=== PATIENT | male | born 1965 | race Caucasian/White ===

== ENCOUNTER 2016-10-07 02:19 | Observation (INO) | payer MEDICAID ==
[~2016-10-07] VITALS: Ht 180.3 cm; Wt 131.4 kg
[2016-10-07 03:06] LABS: APPEARANCE CLEAR (CLEAR); BILIRUBIN NEGATIVE (NEGATIVE); COLOR YELLOW (YELLOW); GLUCOSE 50 mg/dL (NEGATIVE); KETONE NEGATIVE (NEGATIVE); LEUKOCYTE ESTERASE NEGATIVE (NEGATIVE); NITRITE NEGATIVE (NEGATIVE); PROTEIN NEGATIVE (NEGATIVE); SPECIFIC GRAVITY 1.015 (1.005-1.020); UROBILINOGEN NORMAL (NORMAL)
[2016-10-07 03:12] LABS: UDS - AMPHET NEGATIVE QUAL (NEGATIVE); UDS - BARB NEGATIVE QUAL (NEGATIVE); UDS - BENZO NEGATIVE QUAL (NEGATIVE); UDS - COCAINE NEGATIVE QUAL (NEGATIVE); UDS - METH NEGATIVE QUAL (NEGATIVE); UDS - OPIATE NEGATIVE QUAL (NEGATIVE); UDS - PCP NEGATIVE QUAL (NEGATIVE); UDS - THC NEGATIVE QUAL (NEGATIVE)
[2016-10-07 03:30] LABS: BASOPHILS 0.1 % (0-2); EOSINOPHILS 0.7 % (0-7); HEMATOCRIT 43.1 % (42.0-54.0); HEMOGLOBIN 14.7 g/dL (13.5-17.5); IMMATURE GRANULOCYTES 0.4 % (0-5); LYMPHOCYTES 12.2 % (15-50); MCH 29.3 pg (26.0-34.0); MCHC 34.1 g/dL (31.0-37.0); MCV 85.9 fL (80.0-100.0); MEAN PLATELET VOLUME 10.2 fL (7.4-10.4); MONOCYTES 7.2 % (2-11); NEUTROPHILS 79.4 % (40-80); PLATELET COUNT 280 10x3/uL (130-400); RBC 5.02 10x6/uL (4.20-6.10); RDW 12.6 % (11.5-14.5); WBC 13.7 10x3/uL (4.8-10.8)
[2016-10-07 03:49] LABS: ALBUMIN 3.8 g/dL (3.4-5.0); ALKALINE PHOSPHATASE 116 U/L (46-116); ALT (SGPT) 34 U/L (10-68); BILIRUBIN - TOTAL 0.48 mg/dL (0.2-1.3); CALC OSMOLALITY 254 mosm/kg (275-300); CALCIUM 8.6 mg/dL (8.5-10.1); CARBON DIOXIDE 21.8 mmol/L (21.0-32.0); CHLORIDE - SERUM 92 mmol/L (98-107); CREATININE - SERUM 0.9 mg/dL (0.6-1.3); GLUCOSE 92 mg/dL (74-106); MAGNESIUM - SERUM 1.9 mg/dL (1.8-2.4); POTASSIUM - SERUM 4.3 mmol/L (3.5-5.1); PROTEIN - SERUM 7.7 g/dL (6.4-8.2); SODIUM 126 mmol/L (136-145); UREA NITROGEN 17 mg/dL (7-18); eGFR NON AFRICAN AMERICAN > 90 mL/min (90-120)
--- NOTE | 2016-10-07 07:56 | NUR ---
RECEIVED PT VIA WHEELCHAIR ACCOMPANIED BY ER NURSE. PT IS CONFUSED AND STATES WHEN ASKED IF HE KNOWS WHERE HE IS "I'M AT MY MOMS HOUSE IN [facility]". ASSISTED PT TO BED. BED IS IN LOW POSITION, SIDE RAILS ARE UP X2, CALL LIGHT IS IN REACH, AND BED ALARM IS ON. ON ROOM AIR. NO MONITOR. IV SEEN TO RIGHT WRIST WITH NS RUNNING AT 100CC. DR JUAREZ ON UNIT NOW. INFORMED DR. JUAREZ THAT PT IS CONFUSED. DR. JUAREZ IN ROOM NOW. WILL CONTINUE TO MONITOR AND AWAIT NEW ORDERS.
[2016-10-07 09:43] LABS: CREATINE KINASE 392 UL (21-232)
[2016-10-07 09:44] LABS: CKMB 10.8 U/L (0.0-3.6)
[2016-10-07] MEDS ORDERED: METOPROLOL TAR100 M1 PO (09:49)
[2016-10-07] MEDS ORDERED: LITHIUM CARBON300 MG PO (09:49)
[2016-10-07] MEDS ORDERED: KLONOPIN1 MG PO (09:50)
[2016-10-07] MEDS ORDERED: GLUCOPHAGE500 MG PO (09:51)
[2016-10-07 09:52] VITALS: BP 143/76; Ht 180.3 cm; Wt 131.4 kg
--- NOTE | 2016-10-07 10:31 | NUR ---
ATTEMPTED TO DO PTS QUICKSTART, ADMISSION ASSESSMENT, AND ADMISSION HISTORY. I WAS NOT ABLE TO GET EFFICIENT INFORMATION DUE TO PT BEING VERY CONFUSED. DR. JUAREZ IS AWARE OF PTS CONFUSION AND HAS ALREADY MADE ROUNDS. INSTRUCTED PT TO NOT GET OOB UNLESS STAFF IS IN ROOM TO ASSIST PT. BED IS IN LOW POSITION, SIDE RAILS ARE UP X2, CALL LIGHT IS IN REACH, AND NON-SKID SOCKS ARE ON. BED ALARM IS ON. WILL CONTINUE TO MONITOR.
[2016-10-07 12:00] VITALS: BP 135/69
--- NOTE | 2016-10-07 13:50 | NUR ---
ATTEMPTED TO CALL NUMBER GIVEN FOR PTS MOTHERS PHONE NUMBER IN CHART WITH NO ANSWER AND NO VOICEMAIL SET UP. WILL TRY AGAIN AND CONTINUE TO MONITOR.
[2016-10-07 16:00] VITALS: BP 143/56
--- NOTE | 2016-10-07 16:13 | NUR ---
STEVE, FUN HOUSE OPERATOR OBTAINED PT INFORMATION FROM DR. WHITING OFFICE TO SEE ABOUT GETTING IN CONTACT WITH PTS FAMILY (MOTHER) REQUESTED BY PT. CALLED PHONE NUMBER PROVIDED AND IT WENT STRAIGHT TO MESSAGE THAT STATED "PERSON DOES NOT HAVE VOICEMAIL SET UP, TRY AGAIN LATER".
--- NOTE | 2016-10-07 17:21 | NUR ---
PTS FAMILY FRIEND CALLED TO SEE ABOUT PT. FAMILY FRIEND STATES SHE WILL LET PTS MOM (PT HAS BEEN REQUESTING TO SPEAK WITH HIS MOTHER BUT WE HAVE NOT BEEN ABLE TO GET AHOLD OF PTS MOM WITH RIGHT PHONE NUMBER) KNOW PT IS IN HOSPITAL REQUESTED BY PT. PTS FRIEND STATES SHE WILL BE UP HERE SOON.
--- NOTE | 2016-10-07 17:22 | NUR ---
PT IS CURRENTLY SITTING ON SIDE OF BED, JUST FINISHED EATING DINNER TRAY. PT APPEARS TO BE CONFUSED. BED IS IN LOW POSITION, SIDE RAILS ARE UP X2, CALL LIGHT IS IN REACH, AND NON-SKID SOCKS ARE ON. BED ALARM IS ON. WILL CONTINUE TO MONITOR.
[2016-10-07 19:00] VITALS: BP 138/70
--- NOTE | 2016-10-07 19:50 | NUR ---
PT UP IN ROOM. RIGHT WRIST NS RUNNING AT 100ML/HR. PT IS BIPOLAR AND HAS A HX OF DRUG USE AND DIABETES.
--- NOTE | 2016-10-07 23:40 | NUR ---
PT IN HALLWAY SHOUTING AND BEING LOUD. SECURITY CALLED BY ABILIO MOTLEY. SECURITY WENT INTO PT'S ROOM AND TALKED WITH HIM. PT IS NOW MORE CALM. WILL CONTNINUE TO MONITOR.
--- NOTE | 2016-10-08 02:00 | NUR ---
PT IN BED WITH HOB UP FOR COMOFT. EYES CLSOED. CHEST RISING AND FALLING. BED IN LOWEST POSITION AND CALL LIGHT WITHIN REACH.
--- NOTE | 2016-10-08 03:15 | NUR ---
PT SITTING UP ON SIDE OF BED EATING A SNACK.
[2016-10-08 04:00] VITALS: BP 103/79
--- NOTE | 2016-10-08 04:00 | NUR ---
PT'S Q4H NEURO CHECKS FOR 0000. CONFUSED/DISORIENTED TO PLACE, TIME, AND SITUATION. GLASCOW COMA SCALE. EYE OPENIN SPONTANEOUSLY. BEST MOTOR RESPONSE: 6 OBEYS COMMANDS. BEST VERBAL RESPONSE: 4 CONFUSED. PT'S Q4H NEURO CHECKS FOR 0400. CONFUSED/DISORIENTED TO PLACE, TIME, AND SITUATION. GLASCOW COMA SCALE. EYE OPENIN SPONTANEOUSLY. BEST MOTOR RESPONSE: 6 OBEYS COMMANDS. BEST VERBAL RESPONSE: 4 CONFUSED.
--- NOTE | 2016-10-08 05:00 | NUR ---
PT HAS BEEN UP AND DOWN ALL NIGHT WITH INAPPRORIATE BEHAVIOR. MEDICATIONS GIVEN PER MD ORDERS AND PT WILL THEN SLEEP FOR A SHORT WHILE BEFORE REAWAKENING TO START HIS BEHAVIORS AGAIN. MONITOR, MAINTAIN IN SAFE ENVIRONMENT. CPOC.
[2016-10-08 05:38] LABS: BASOPHILS 0.7 % (0-2); HEMATOCRIT 39.3 % (42.0-54.0); HEMOGLOBIN 13.3 g/dL (13.5-17.5); IMMATURE GRANULOCYTES 0.2 % (0-5); LYMPHOCYTES 25.9 % (15-50); MCH 30.1 pg (26.0-34.0); MCHC 33.8 g/dL (31.0-37.0); MEAN PLATELET VOLUME 10.8 fL (7.4-10.4); MONOCYTES 14.8 % (2-11); NEUTROPHILS 56.4 % (40-80); PLATELET COUNT 254 10x3/uL (130-400); RBC 4.42 10x6/uL (4.20-6.10)
[2016-10-08 05:44] LABS: MCV 88.9 fL (80.0-100.0); WBC 4.5 10x3/uL (4.8-10.8)
[2016-10-08 06:14] LABS: CALC OSMOLALITY 277 mosm/kg (275-300); CALCIUM 8.6 mg/dL (8.5-10.1); CARBON DIOXIDE 24.3 mmol/L (21.0-32.0); CHLORIDE - SERUM 104 mmol/L (98-107); CKMB 2.9 U/L (0.0-3.6); CREATINE KINASE 139 UL (21-232); CREATININE - SERUM 0.7 mg/dL (0.6-1.3); GLUCOSE 212 mg/dL (74-106); POTASSIUM - SERUM 4.3 mmol/L (3.5-5.1); SODIUM 137 mmol/L (136-145); TROPONIN-I < 0.017 ng/mL (0.000-0.060); UREA NITROGEN 7 mg/dL (7-18); eGFR NON AFRICAN AMERICAN > 90 mL/min (90-120)
--- NOTE | 2016-10-08 08:15 | NUR ---
AM ROUNDING- RECEIVED REPORT FROM REGULATOR PIN INSERTER NURSE DAYLIN. PT IS CURRENTLY LAYING IN BED ON RIGHT SIDE WITH EYES CLOSED RESTING. ON ROOM AIR. NO MONITOR. IV SEEN TO RIGHT WRIST WITH NS RUNNING AT 100CC. NO NEED AT CURRENT TIME. BED IS IN LOW POSITION, SIDE RAILS ARE UP X2, CALL LIGHT IS IN REACH, AND NON-SKID SOCKS ARE ON. WILL CONTINUE TO MONITOR AND CONTINUE WITH PLAN OF CARE.
[2016-10-08 08:24] VITALS: BP 121/55
--- NOTE | 2016-10-08 11:35 | NUR ---
PTS MOTHER CALLED NURSES STATION. PTS MOTHER STATES HE HAS BEEN CONFUSED FOR SEVERAL WEEKS NOW WITH CONFUSION AND SLURRED SPEECH. PTS MOTHER STATES HE LIVES BY HIMSELF IN PUBLIC HOUSING [place]OWN BY [facility]. PTS MOTHER STATES SHE THINKS HE MAY BE TAKING TOO MUCH OF HIS MEDICATION OR NOT ENOUGH. PTS MOTHER STATES HE WAS IN THE HOSPITAL APR[facility] THREE WEEKS AGO AND NOT SURE EXACTLY WHICH HOSPITAL BUT [facility]. TRANSFERRED PTS MOTHER TO PTS ROOM PHONE. WILL CONTINUE TO MONITOR.
--- NOTE | 2016-10-08 12:03 | NUR ---
RECEIVED CALL FROM PTS MOTHER AFTER PTS MOTHER HAD SPOKEN TO PT. MOTHER STATES THAT SHE BELIEVES PT IS BACK AT HIS BASELINE. MOTHER IS CONCERNED BECAUSE PT IS STATING TO HER THAT THE HOMELESS PEOPLE THAT LIVE AROUND WHERE PT LIVES IS STEALING HIS HOME MEDICATIONS AND POSSIBLY HIS TRUCK. PTS MOTHER IS WONDERING WHEN PT MIGHT BE D/C TO SEE ABOUT THIS SITUATION. I INFORMED PTS MOTHER THAT PER DR. HAYES WRITTEN NOTES, PT MAY POSSIBLY BE D/C HOME TODAY.
[2016-10-08 12:12] VITALS: BP 150/80
--- NOTE | 2016-10-08 13:02 | NUR ---
PT REFUSES SCDS. PT IS UP WALKING IN ROOM OFTEN.
--- NOTE | 2016-10-08 15:22 | NUR ---
1430- PT IS CURRENTLY SITTING IN ROOM WITH EYES OPEN RESTING. PT HAS BEEN COMING OUT OF ROOM FREQUENTLY. CALL LIGHT IS IN REACH AND NON-SKID SOCKS ARE ON. WILL CONTINUE TO MONITOR.
[2016-10-08 16:27] VITALS: BP 145/83
--- NOTE | 2016-10-08 17:37 | NUR ---
PAGED DR. HAYES OFFICE REGARDING NURSING MESSAGE ABOUT D/C PT TODAY POSSIBLY. SPOKE WITH LEIA. WILL AWAIT CALLBACK.
--- NOTE | 2016-10-08 17:46 | NUR ---
RECEIVED CALLBACK FROM DR. EDEN. INFORMED DR. EDEN THAT I HAVE TALKED TO PTS MOTHER AND THAT PTS MOTHER STATED THAT PT SEEMED LIKE HIS NORMAL SELF WHEN SPEAKING ON THE PHONE TO HIM. DR. EDEN STATES THAT HE WILL GO AHEAD AND SEE PT IN THE MORNING. WILL PASS THIS ALONG IN REPORT. PT IS CURRENTLY SITTING UP IN CHAIR WITH EYES OPEN RESTING. CALL LIGHT IS IN REACH AND NON-SKID SOCKS ARE ON. WILL CONTINUE TO MONITOR.
--- NOTE | 2016-10-08 18:35 | NUR ---
PT IS CURRENTLY SITTING UP IN CHAIR WITH EYES OPEN RESTING. NO NEED AT CURRENT TIME. CALL LIGHT IS IN REACH. WILL CONTINUE TO MONITOR.
[2016-10-08 19:00] VITALS: BP 122/96
--- NOTE | 2016-10-08 19:56 | NUR ---
PT WALK OUT OF ROOM, COME TO NURSE STATION, SHOUTING, HE WANT TO CALL HIS MOTHER, FRIENDS, TRY TO CALL HIS MOTHER, AND FRIENDS, NO ANSWER. PT HAS A LOT OF ANXIETY AND IS RESTLESS, ATIVAN GIVEN.
--- NOTE | 2016-10-08 22:30 | NUR ---
SIT UP IN BED EAT SNACK.
--- NOTE | 2016-10-09 01:30 | NUR ---
REST IN BED, EYE CLOSE, BED LOW, CALL LIGHT WITHIN REACH.
--- NOTE | 2016-10-09 04:05 | NUR ---
SIT UP IN BED, SCATCH BACK, STATE UNABLE GO BACK TO SLEEP, AND NEED TWO MORE PILLOWS FOR SUPPORT HEAD, BRINGS PT PILLOWS.
--- NOTE | 2016-10-09 04:05 | NUR ---
PT SIT UP IN BED, SCRATCH BACK, STATE UNABLE GO BACK TO SLEEP, NEED TWO MORE PILLOWS TO SUPPORT NECK, AND BRING PILLOWS FOR PT.
--- NOTE | 2016-10-09 08:38 | NUR ---
PT OUT AMBULATING HALLWAYS. ASSISTED PT BACK TO HIS ROOM. OUTSIDE AND STATES FLUIDS CAN BE DISCONNECTED AND HE IS SENDING PT HOME. SHIFT ASSESSMENT COMPLETED AND PT READY TO GO HOME AND STATES "IM EXCITED"
[2016-10-09 09:18] VITALS: BP 164/102
--- NOTE | 2016-10-09 11:23 | NUR ---
Patient Name: PATRICK LESTER Admission Status: ER Accout number: [id number] Admission Date: 10-07-2016 : 1965 Admission Diagnosis: Attending: KENNY Current LOS: 2 Anticipated DC Date: 10-09-2016 Planned Disposition: Home Primary Insurance: MEDICAID [place] Discharge Planning Comments: * Is the patient Alert and Oriented? Yes 0 * How many steps to enter\exit or inside your home? 5 0 * PCP DR. DUNCAN 0 * Pharmacy ON [facility] - CAN'T REMEMBER THE NAME 0 * Preadmission Environment Home Alone 0 * ADLs Independent 0 * Equipment None 0 * Other Equipment NO MEDICAL EQUIPMENT PROVIDER PREFERENCE 0 * List name and contact numbers for known caregivers / representatives who currently or will assist patient after discharge: JOSE A DAVIS, MOTHER, JEROME DAVIS, BROTHER, [place] [phone] AZALIA DAVIS, MOTHER'S SPOUSE, DO NOT GIVE THIS NUMBER TO PATIENT * Community resources currently utilized None 0 * Please name any agencies selected above. NONE 0 * Additional services required to return to the preadmission environment? No 0 * Can the patient safely return to the preadmission environment? Yes 0 * Has this patient been hospitalized within the prior 30 days at any hospital? No 0 CM RECEIVED ORDER FOR DRUG OR ALCOHOL SCREENING. CM MET WITH PT IN ROOM TO DISCUSS DISCHARGE PLANNING AND NEEDS. PT REPORTS LIVING AT HOME INDEPENDENTLY IN A GOVERNMENT HOUSING APARTMENT ON [facility]. PT HAS NO MEDICAL EQUIPMENT AND NO OUTSIDE SERVICES ASSISTING IN THE HOME. CM DISCUSSED AVAILABILITY OF HOME HEALTH, REHAB SERVICES AND MEDICAL EQUIPMENT. PT DENIES DISCHARGE NEEDS, REPORTS HIS MOTHER WILL PICK HIM UP FOR DISCHARGE HOME. PT CANNOT REMEMBER HIS ADDRESS, BUT REPORTS HE KNOWS HOW TO GET THERE; PT DOES NOT REMEMBER HIS MOTHER'S PHONE NUMBER TO CALL FOR TRANSPORTATION. CM DISCUSSED SUBSTANCE ABUSE, PT DENIES CURRENT DRUG OR ALCOHOL ABUSE, REPORTS HE IS A DRUG ADDICT BUT IS NOT USING DRUGS NOW. PT DENIES NEED OF TREATMENT OR COMMUNITY SUPPORT GROUP INFORMATION. CM CALLED PT'S LISTED EMERGENCY NUMBER FOR HIS MOTHER, JOSE A, , THERE WAS NO ANSWER AND NO VOICE MAIL SET UP. CM CALLED NUMBER OBTAINED FROM BEDSIDE NURSE, , MESSAGE REPORTS TO BE JEROME LESTER OF [employer] HOME REPAIR, CM LEFT MESSAGE ASKING FOR RETURN CALL. CM CALLED ANOTHER NUMBER FOR JEROME AT [phone], THERE WAS NO ANSWER AND NO MESSAGE MACHINE. CM SPOKE TO BEDSIDE NURSE WHO REPORTED A GIRL NAMED MARTHA CALLED AND SAID SHE WAS ON THE WAY TO SHEET METAL INSTALLER PT SHE HAS PT'S CELL PHONE AND TRUCK. CM RECEIVED CALL BACK FROM JOSE A DAVIS WHO REPORTS THAT HER SPOUSE'S NUMBER, AZALIA DAVIS, , IS A GOOD EMERGENCY NUMBER FOR FAMILY BUT FOR STAFF TO NOT GIVE IT TO PT HE CALLS CONSTANTLY. PT HAS A TRUCK TO DRIVE AND TAKES CARE OF HIMSELF. PT LIVES INDEPENDENTLY AT UNKNOWN ADDRESS ON [facility] IN AN APARTMENT. JOSE A REPORTS PT HAS TOLD HER THAT HE HAS DOES A LOT WITH HOMELESS PEOPLE, SHE IS UNAWARE OF WHO MARTHA WOULD BE. PT NOTIFIED OF MARTHA HAVING HIS TRUCK AND PHONE WHO WILL PICK HIM UP TODAY. PT REPORTS NOT KNOWING WHO MARTHA IS BUT WILL WAIT FOR HIS RIDE TO GET HERE. Policy Director: Emmanuel Almendarez
--- NOTE | 2016-10-09 12:20 | NUR ---
DISCHARGED TEACHING PROVIDED AND PAPERS SIGNED. D/C PTS L.FA PIV WITH CATHETER TIP FULLY INTACT. NO FURTHER NEEDS. PTS RIDE IS HERE, WILL DISCHARGE NOW.
== END 2016-10-09 12:26 | disposition home or self-care (01) ==
LOC: D.ER 02:19 → D.M2 07:00 → OBSVTIME 07:00 → D.M2 07:00
PROVIDERS: Emergency Medicine; ADMIT Family Medicine
DX: G93.41 Metabolic encephalopathy (principal); T43.595A Adverse effect of other antipsychotics and neuroleptics, initial encounter; E87.1 Hypo-osmolality and hyponatremia; F31.9 Bipolar disorder, unspecified; I10 Essential (primary) hypertension; Z91.81 History of falling

== ENCOUNTER 2016-10-11 03:15 | Emergency (ER) | payer MEDICAID ==
[2016-10-07 09:52] VITALS: BMI 39.2
[~2016-10-11 03:15] MED LIST: GLUCOPHAGE500 MG PO; KLONOPIN1 MG PO; LITHIUM CARBON300 MG PO; METOPROLOL TAR100 M1 PO
[2016-10-11 03:44] LABS: BASOPHILS 0.4 % (0-2); EOSINOPHILS 1.3 % (0-7); HEMATOCRIT 42.6 % (42.0-54.0); HEMOGLOBIN 14.2 g/dL (13.5-17.5); IMMATURE GRANULOCYTES 0.3 % (0-5); LYMPHOCYTES 31.3 % (15-50); MCH 29.5 pg (26.0-34.0); MCHC 33.3 g/dL (31.0-37.0); MCV 88.4 fL (80.0-100.0); MEAN PLATELET VOLUME 10.1 fL (7.4-10.4); MONOCYTES 8.5 % (2-11); NEUTROPHILS 58.2 % (40-80); RBC 4.82 10x6/uL (4.20-6.10); WBC 8.9 10x3/uL (4.8-10.8)
[2016-10-11 03:58] LABS: PLATELET COUNT 329 10x3/uL (130-400)
[2016-10-11 04:04] LABS: LITHIUM 1.57 mmol/L (0.60-1.20); SALICYLATES 2.1 mg/dL (2.8-20.0)
[2016-10-11 04:10] LABS: ALBUMIN 4.1 g/dL (3.4-5.0); ALKALINE PHOSPHATASE 123 U/L (46-116); ALT (SGPT) 38 U/L (10-68); BILIRUBIN - TOTAL 0.36 mg/dL (0.2-1.3); CALC OSMOLALITY 277 mosm/kg (275-300); CALCIUM 9.2 mg/dL (8.5-10.1); CARBON DIOXIDE 24.5 mmol/L (21.0-32.0); CHLORIDE - SERUM 101 mmol/L (98-107); CREATININE - SERUM 0.9 mg/dL (0.6-1.3); POTASSIUM - SERUM 4.2 mmol/L (3.5-5.1); PROTEIN - SERUM 7.6 g/dL (6.4-8.2); SODIUM 132 mmol/L (136-145); UREA NITROGEN 18 mg/dL (7-18); eGFR NON AFRICAN AMERICAN > 90 mL/min (90-120)
[2016-10-11 04:11] LABS: GLUCOSE 296 mg/dL (74-106)
== END 2016-10-11 09:39 | disposition home or self-care (01) ==
LOC: D.ER 03:15
PROVIDERS: Emergency Medicine
DX: F15.10 Other stimulant abuse, uncomplicated (principal); E11.9 Type 2 diabetes mellitus without complications; I10 Essential (primary) hypertension; F31.89 Other bipolar disorder

== ENCOUNTER 2016-10-12 08:46 | Emergency (ER) | payer MEDICAID ==
[2016-10-07 09:52] VITALS: BMI 39.2
[2016-10-12 09:23] LABS: APPEARANCE CLEAR (CLEAR); BILIRUBIN NEGATIVE (NEGATIVE); COLOR YELLOW (YELLOW); GLUCOSE 1000 mg/dL (NEGATIVE); KETONE MODERATE mg/dL (NEGATIVE); LEUKOCYTE ESTERASE NEGATIVE (NEGATIVE); NITRITE NEGATIVE (NEGATIVE); PROTEIN NEGATIVE (NEGATIVE); SPECIFIC GRAVITY 1.015 (1.005-1.020); UDS - AMPHET NEGATIVE QUAL (NEGATIVE); UDS - BARB NEGATIVE QUAL (NEGATIVE); UDS - BENZO POSITIVE QUAL (NEGATIVE); UDS - COCAINE NEGATIVE QUAL (NEGATIVE); UDS - METH NEGATIVE QUAL (NEGATIVE); UDS - OPIATE NEGATIVE QUAL (NEGATIVE); UDS - PCP NEGATIVE QUAL (NEGATIVE); UDS - THC NEGATIVE QUAL (NEGATIVE); UROBILINOGEN NORMAL (NORMAL)
[2016-10-12 09:24] LABS: BACTERIA NONE SEEN /hpf (NONE SEEN); EPITHELIAL CELLS NSEEN /hpf (0-5); RED CELLS - URINE 0-5 /hpf (0-5); WHITE CELLS - URINE NSEEN /hpf (0-5)
[2016-10-12 09:49] LABS: ALBUMIN 3.8 g/dL (3.4-5.0); ALKALINE PHOSPHATASE 115 U/L (46-116); ALT (SGPT) 36 U/L (10-68); BILIRUBIN - TOTAL 0.48 mg/dL (0.2-1.3); CALC OSMOLALITY 282 mosm/kg (275-300); CALCIUM 8.9 mg/dL (8.5-10.1); CARBON DIOXIDE 25.9 mmol/L (21.0-32.0); CHLORIDE - SERUM 102 mmol/L (98-107); CREATININE - SERUM 0.7 mg/dL (0.6-1.3); GLUCOSE 241 mg/dL (74-106); POTASSIUM - SERUM 4.6 mmol/L (3.5-5.1); PROTEIN - SERUM 7.2 g/dL (6.4-8.2); SODIUM 137 mmol/L (136-145); UREA NITROGEN 14 mg/dL (7-18); eGFR NON AFRICAN AMERICAN > 90 mL/min (90-120)
[2016-10-12 10:19] LABS: BASOPHILS 0.3 % (0-2); EOSINOPHILS 2.7 % (0-7); HEMATOCRIT 42.6 % (42.0-54.0); HEMOGLOBIN 14.1 g/dL (13.5-17.5); IMMATURE GRANULOCYTES 0.3 % (0-5); LYMPHOCYTES 28.9 % (15-50); MCH 29.9 pg (26.0-34.0); MCHC 33.1 g/dL (31.0-37.0); MCV 90.3 fL (80.0-100.0); MEAN PLATELET VOLUME 10.1 fL (7.4-10.4); MONOCYTES 8.5 % (2-11); NEUTROPHILS 59.3 % (40-80); PLATELET COUNT 309 10x3/uL (130-400); RBC 4.72 10x6/uL (4.20-6.10)
== END 2016-10-13 15:18 | disposition short-term general hospital (02) ==
LOC: D.ER 08:46
PROVIDERS: Family Medicine
DX: F23 Brief psychotic disorder (principal); F31.89 Other bipolar disorder; E11.9 Type 2 diabetes mellitus without complications; I10 Essential (primary) hypertension; R41.0 Disorientation, unspecified

== ENCOUNTER 2016-10-26 23:14 | Emergency (ER) | payer MEDICAID ==
[2016-10-07 09:52] VITALS: BMI 39.2
== END 2016-10-27 | disposition home or self-care (01) ==
LOC: D.ER 23:14
DX: B35.3 Tinea pedis (principal); K08.89 Other specified disorders of teeth and supporting structures; F31.89 Other bipolar disorder; E11.9 Type 2 diabetes mellitus without complications; I10 Essential (primary) hypertension

== ENCOUNTER 2016-10-27 06:45 | Emergency (ER) | payer MEDICAID ==
[2016-10-07 09:52] VITALS: BMI 39.2
== END 2016-10-27 07:52 | disposition home or self-care (01) ==
LOC: D.ER 06:45
DX: H60.502 Unspecified acute noninfective otitis externa, left ear (principal); E11.9 Type 2 diabetes mellitus without complications; I10 Essential (primary) hypertension; F31.89 Other bipolar disorder; F17.200 Nicotine dependence, unspecified, uncomplicated

== ENCOUNTER 2016-10-29 19:53 | Emergency (ER) | payer MEDICAID ==
[2016-10-07 09:52] VITALS: BMI 39.2
[2016-10-29 21:12] LABS: BASOPHILS 0.6 % (0-2); EOSINOPHILS 2.1 % (0-7); HEMATOCRIT 39.2 % (42.0-54.0); IMMATURE GRANULOCYTES 0.1 % (0-5); LYMPHOCYTES 41.2 % (15-50); MCH 29.3 pg (26.0-34.0); MCHC 33.2 g/dL (31.0-37.0); MCV 88.5 fL (80.0-100.0); MEAN PLATELET VOLUME 10.2 fL (7.4-10.4); MONOCYTES 8.8 % (2-11); NEUTROPHILS 47.2 % (40-80); PLATELET COUNT 281 10x3/uL (130-400); RBC 4.43 10x6/uL (4.20-6.10); RDW 12.8 % (11.5-14.5); WBC 7.1 10x3/uL (4.8-10.8)
== END 2016-10-29 21:45 | disposition home or self-care (01) ==
LOC: D.ER 19:53
PROVIDERS: Emergency Medicine
DX: B35.3 Tinea pedis (principal); F17.200 Nicotine dependence, unspecified, uncomplicated; E11.9 Type 2 diabetes mellitus without complications; I10 Essential (primary) hypertension

== ENCOUNTER 2017-04-11 17:50 | Emergency (ER) | payer MEDICAID ==
[2016-10-07 09:52] VITALS: BMI 39.2
[2017-04-11 19:08] LABS: BASOPHILS 0.4 % (0-2); EOSINOPHILS 2.1 % (0-7); HEMATOCRIT 39.2 % (42.0-54.0); IMMATURE GRANULOCYTES 0.4 % (0-5); LYMPHOCYTES 35.3 % (15-50); MCH 30.7 pg (26.0-34.0); MCHC 33.2 g/dL (31.0-37.0); MCV 92.5 fL (80.0-100.0); MONOCYTES 8.2 % (2-11); NEUTROPHILS 53.6 % (40-80); RBC 4.24 10x6/uL (4.20-6.10); RDW 12.9 % (11.5-14.5); WBC 7.8 10x3/uL (4.8-10.8)
[2017-04-11 19:24] LABS: APPEARANCE CLEAR (CLEAR); BILIRUBIN NEGATIVE (NEGATIVE); COLOR STRAW (YELLOW); GLUCOSE 1000 mg/dL (NEGATIVE); KETONE NEGATIVE (NEGATIVE); NITRITE NEGATIVE (NEGATIVE); PROTEIN NEGATIVE (NEGATIVE); SPECIFIC GRAVITY 1.005 (1.005-1.020); UROBILINOGEN NORMAL (NORMAL)
[2017-04-11 19:26] LABS: BACTERIA FEW /hpf (NONE SEEN); RED CELLS - URINE RARE /hpf (0-5)
[2017-04-11 19:26] LABS: ALKALINE PHOSPHATASE 124 U/L (46-116); ALT (SGPT) 111 U/L (10-68); CHLORIDE - SERUM 96 mmol/L (98-107); CREATININE - SERUM 0.9 mg/dL (0.6-1.3); POTASSIUM - SERUM 4.9 mmol/L (3.5-5.1); PROTEIN - SERUM 6.6 g/dL (6.4-8.2); SODIUM 129 mmol/L (136-145); UREA NITROGEN 14 mg/dL (7-18); eGFR NON AFRICAN AMERICAN > 90 mL/min (90-120)
[2017-04-11 19:27] LABS: PLATELET COUNT 212 10x3/uL (130-400)
[2017-04-11 19:30] LABS: CALC OSMOLALITY 284 mosm/kg (275-300); GLUCOSE 550 mg/dL (74-106)
[2017-04-11 19:46] LABS: UDS - AMPHET NEGATIVE QUAL (NEGATIVE); UDS - BARB NEGATIVE QUAL (NEGATIVE); UDS - BENZO NEGATIVE QUAL (NEGATIVE); UDS - COCAINE NEGATIVE QUAL (NEGATIVE); UDS - OPIATE NEGATIVE QUAL (NEGATIVE); UDS - PCP NEGATIVE QUAL (NEGATIVE); UDS - THC NEGATIVE QUAL (NEGATIVE)
[2017-04-11 20:02] LABS: KETONE - SERUM NEGATIVE (NEGATIVE)
[2017-04-11 20:18] LABS: THYROID STIMULATING HORMONE 1.41 uIU/mL (0.36-3.74)
== END 2017-04-12 05:38 | disposition short-term general hospital (02) ==
LOC: D.ER 17:50
PROVIDERS: Family Medicine
DX: F22 Delusional disorders (principal); F23 Brief psychotic disorder; E11.9 Type 2 diabetes mellitus without complications; I10 Essential (primary) hypertension

== ENCOUNTER 2017-04-28 17:11 | Emergency (ER) | payer MEDICAID ==
[2016-10-07 09:52] VITALS: BMI 39.2
[2017-04-28 17:34] LABS: BASOPHILS 0.5 % (0-2); EOSINOPHILS 4.1 % (0-7); HEMATOCRIT 40.9 % (42.0-54.0); HEMOGLOBIN 13.5 g/dL (13.5-17.5); IMMATURE GRANULOCYTES 0.2 % (0-5); LYMPHOCYTES 31.8 % (15-50); MCV 90.9 fL (80.0-100.0); MEAN PLATELET VOLUME 10.4 fL (7.4-10.4); MONOCYTES 7.6 % (2-11); NEUTROPHILS 55.8 % (40-80); PLATELET COUNT 247 10x3/uL (130-400); RDW 12.5 % (11.5-14.5); WBC 6.2 10x3/uL (4.8-10.8)
[2017-04-28 17:58] LABS: ALBUMIN 2.9 g/dL (3.4-5.0); ALKALINE PHOSPHATASE 119 U/L (46-116); ALT (SGPT) 276 U/L (10-68); BILIRUBIN - TOTAL 0.22 mg/dL (0.2-1.3); CALC OSMOLALITY 274 mosm/kg (275-300); CALCIUM 8.9 mg/dL (8.5-10.1); CARBON DIOXIDE 25.1 mmol/L (21.0-32.0); CHLORIDE - SERUM 102 mmol/L (98-107); CREATININE - SERUM 0.9 mg/dL (0.6-1.3); POTASSIUM - SERUM 4.2 mmol/L (3.5-5.1); PROTEIN - SERUM 6.7 g/dL (6.4-8.2); SODIUM 134 mmol/L (136-145); UREA NITROGEN 8 mg/dL (7-18); eGFR NON AFRICAN AMERICAN > 90 mL/min (90-120)
[2017-04-28 17:59] LABS: GLUCOSE 253 mg/dL (74-106)
[2017-04-28 19:38] LABS: APPEARANCE CLEAR (CLEAR); BILIRUBIN NEGATIVE (NEGATIVE); COLOR YELLOW (YELLOW); GLUCOSE 1000 mg/dL (NEGATIVE); KETONE NEGATIVE (NEGATIVE); NITRITE NEGATIVE (NEGATIVE); PROTEIN NEGATIVE (NEGATIVE); SPECIFIC GRAVITY 1.015 (1.005-1.020); UROBILINOGEN NORMAL (NORMAL)
[2017-04-28 19:47] LABS: UDS - AMPHET NEGATIVE QUAL (NEGATIVE); UDS - BARB NEGATIVE QUAL (NEGATIVE); UDS - BENZO NEGATIVE QUAL (NEGATIVE); UDS - COCAINE NEGATIVE QUAL (NEGATIVE); UDS - OPIATE NEGATIVE QUAL (NEGATIVE); UDS - PCP NEGATIVE QUAL (NEGATIVE); UDS - THC NEGATIVE QUAL (NEGATIVE)
== END 2017-04-29 02:00 | disposition short-term general hospital (02) ==
LOC: D.ER 17:11
PROVIDERS: Emergency Medicine
DX: R45.851 Suicidal ideations (principal); F31.9 Bipolar disorder, unspecified; E11.9 Type 2 diabetes mellitus without complications; I10 Essential (primary) hypertension

== ENCOUNTER 2017-08-20 17:28 | Emergency (ER) | payer MEDICAID ==
[~2017-08-20] VITALS: Ht 180.3 cm; Wt 104.5 kg
[2017-08-20 17:40] VITALS: Ht 180.3 cm; Wt 104.5 kg
[2017-08-20 17:58] LABS: APPEARANCE CLEAR (CLEAR); BILIRUBIN NEGATIVE (NEGATIVE); COLOR YELLOW (YELLOW); GLUCOSE 1000 mg/dL (NEGATIVE); KETONE NEGATIVE (NEGATIVE); NITRITE NEGATIVE (NEGATIVE); PROTEIN NEGATIVE (NEGATIVE); SPECIFIC GRAVITY 1.015 (1.005-1.020); UROBILINOGEN NORMAL (NORMAL)
[2017-08-20 18:18] LABS: BASOPHILS 0 % (0-2); EOSINOPHILS 0.9 % (0-7); HEMATOCRIT 43.9 % (42.0-54.0); IMMATURE GRANULOCYTES 0.2 % (0-5); LYMPHOCYTES 16.3 % (15-50); MCH 30.2 pg (26.0-34.0); MCHC 34.2 g/dL (31.0-37.0); MCV 88.3 fL (80.0-100.0); MEAN PLATELET VOLUME 10.8 fL (7.4-10.4); NEUTROPHILS 78.6 % (40-80); PLATELET COUNT 218 10x3/uL (130-400); RBC 4.97 10x6/uL (4.20-6.10); WBC 8.2 10x3/uL (4.8-10.8)
[2017-08-20 19:06] LABS: UDS - AMPHET NEGATIVE QUAL (NEGATIVE); UDS - BARB NEGATIVE QUAL (NEGATIVE); UDS - BENZO NEGATIVE QUAL (NEGATIVE); UDS - COCAINE NEGATIVE QUAL (NEGATIVE); UDS - OPIATE NEGATIVE QUAL (NEGATIVE); UDS - PCP NEGATIVE QUAL (NEGATIVE); UDS - THC NEGATIVE QUAL (NEGATIVE)
[2017-08-20 19:19] LABS: C-REACTIVE PROTEIN 3.9 mg/dL (0.0-0.9)
[2017-08-20 19:23] LABS: TROPONIN-I < 0.017 ng/mL (0.000-0.060)
[2017-08-20 19:52] LABS: ALBUMIN 3.5 g/dL (3.4-5.0); ALKALINE PHOSPHATASE 128 U/L (46-116); ALT (SGPT) 155 U/L (10-68); BILIRUBIN - TOTAL 0.64 mg/dL (0.2-1.3); CALC OSMOLALITY 279 mosm/kg (275-300); CALCIUM 9.1 mg/dL (8.5-10.1); CARBON DIOXIDE 21.5 mmol/L (21.0-32.0); CHLORIDE - SERUM 95 mmol/L (98-107); POTASSIUM - SERUM 4.4 mmol/L (3.5-5.1); PROTEIN - SERUM 8.1 g/dL (6.4-8.2); SODIUM 130 mmol/L (136-145); UREA NITROGEN 17 mg/dL (7-18); eGFR NON AFRICAN AMERICAN 83 mL/min (90-120)
[2017-08-20 19:54] LABS: GLUCOSE 404 mg/dL (74-106)
[2017-08-20 20:03] LABS: CKMB 0.5 U/L (0.0-3.6); CREATINE KINASE 46 UL (21-232)
[2017-08-20 23:24] VITALS: BP 135/79
== END 2017-08-20 23:26 | disposition home or self-care (01) ==
LOC: D.ER 17:28
PROVIDERS: Emergency Medicine; Family Medicine
DX: E11.65 Type 2 diabetes mellitus with hyperglycemia (principal); E86.0 Dehydration; R53.83 Other fatigue; I10 Essential (primary) hypertension

== ENCOUNTER 2017-09-13 12:23 | Emergency (ER) | payer MEDICAID ==
[~2017-09-13] VITALS: Ht 180.3 cm; Wt 110.0 kg
[2017-09-13 13:06] VITALS: Ht 180.3 cm; Wt 110.0 kg
[2017-09-13] MEDS ORDERED: NEURONTIN 300300 MG PO (13:08)
[2017-09-13] MEDS ORDERED: SEROQUEL50 MG PO (13:08)
[2017-09-13] MEDS ORDERED: VISTARIL50 MG PO (13:08)
[2017-09-13] MEDS ORDERED: GLUCOTROL 5 MG T5 MG PO (13:08)
[2017-09-13] MEDS ORDERED: OCUFLOX 0.3 % OP5 ML LEFT EYE (14:49)
[2017-09-13 14:56] VITALS: BP 130/80
== END 2017-09-13 14:57 | disposition home or self-care (01) ==
LOC: D.ER 12:23
DX: H60.92 Unspecified otitis externa, left ear (principal); I10 Essential (primary) hypertension

== ENCOUNTER 2017-09-17 13:41 | Emergency (ER) | payer MEDICAID ==
[~2017-09-17] VITALS: Ht 180.3 cm; Wt 111.4 kg
[~2017-09-17 13:41] MED LIST changes: +GLUCOTROL 5 MG T5 MG PO; +NEURONTIN 300300 MG PO; +OCUFLOX 0.3 % OP5 ML LEFT EYE; +SEROQUEL50 MG PO; +VISTARIL50 MG PO
[2017-09-17 14:43] VITALS: Ht 180.3 cm; Wt 111.4 kg
[2017-09-17] MEDS ORDERED: ACETIC ACID15 ML LEFT EAR (19:04)
[2017-09-17 19:17] VITALS: BP 132/76
== END 2017-09-17 19:18 | disposition home or self-care (01) ==
LOC: D.ER 13:41
DX: H61.312 Acquired stenosis of left external ear canal secondary to trauma (principal); E11.9 Type 2 diabetes mellitus without complications; I10 Essential (primary) hypertension; K21.9 Gastro-esophageal reflux disease without esophagitis

== ENCOUNTER 2017-09-20 04:33 | Emergency (ER) | payer MEDICAID ==
[~2017-09-20] VITALS: Ht 180.3 cm; Wt 131.8 kg
[~2017-09-20 04:33] MED LIST changes: +ACETIC ACID15 ML LEFT EAR
[2017-09-20 04:38] VITALS: Ht 180.3 cm; Wt 131.8 kg
[2017-09-20 05:42] LABS: BASOPHILS 0.4 % (0-2); HEMATOCRIT 40.1 % (42.0-54.0); HEMOGLOBIN 13.6 g/dL (13.5-17.5); IMMATURE GRANULOCYTES 0.3 % (0-5); LYMPHOCYTES 48.9 % (15-50); MCH 29.6 pg (26.0-34.0); MCHC 33.9 g/dL (31.0-37.0); MCV 87.4 fL (80.0-100.0); MEAN PLATELET VOLUME 9.9 fL (7.4-10.4); MONOCYTES 10.1 % (2-11); NEUTROPHILS 38.3 % (40-80); PLATELET COUNT 192 10x3/uL (130-400); RBC 4.59 10x6/uL (4.20-6.10); RDW 12.1 % (11.5-14.5)
[2017-09-20 05:53] LABS: APPEARANCE CLEAR (CLEAR); BILIRUBIN NEGATIVE (NEGATIVE); COLOR STRAW (YELLOW); GLUCOSE 1000 mg/dL (NEGATIVE); KETONE NEGATIVE (NEGATIVE); NITRITE NEGATIVE (NEGATIVE); PROTEIN NEGATIVE (NEGATIVE); SPECIFIC GRAVITY 1.015 (1.005-1.020); UROBILINOGEN NORMAL (NORMAL)
[2017-09-20 05:55] LABS: UDS - AMPHET NEGATIVE QUAL (NEGATIVE); UDS - BARB NEGATIVE QUAL (NEGATIVE); UDS - BENZO NEGATIVE QUAL (NEGATIVE); UDS - COCAINE NEGATIVE QUAL (NEGATIVE); UDS - OPIATE NEGATIVE QUAL (NEGATIVE); UDS - PCP NEGATIVE QUAL (NEGATIVE); UDS - THC NEGATIVE QUAL (NEGATIVE)
[2017-09-20 05:57] LABS: ALBUMIN 3.6 g/dL (3.4-5.0); ALKALINE PHOSPHATASE 132 U/L (46-116); ALT (SGPT) 90 U/L (10-68); BILIRUBIN - TOTAL 0.28 mg/dL (0.2-1.3); CALC OSMOLALITY 284 mosm/kg (275-300); CALCIUM 8.5 mg/dL (8.5-10.1); CARBON DIOXIDE 24.2 mmol/L (21.0-32.0); CHLORIDE - SERUM 96 mmol/L (98-107); CREATININE - SERUM 0.8 mg/dL (0.6-1.3); POTASSIUM - SERUM 4.1 mmol/L (3.5-5.1); PROTEIN - SERUM 7.5 g/dL (6.4-8.2); SODIUM 132 mmol/L (136-145); UREA NITROGEN 13 mg/dL (7-18); eGFR NON AFRICAN AMERICAN > 90 mL/min (90-120)
[2017-09-20 05:58] LABS: GLUCOSE 459 mg/dL (74-106)
[2017-09-20 06:06] LABS: KETONE - SERUM SMALL mg/dL (NEGATIVE)
[2017-09-20 10:26] VITALS: BP 132/80
== END 2017-09-20 10:27 | disposition home or self-care (01) ==
LOC: D.ER 04:33
PROVIDERS: Family Medicine
DX: F10.129 Alcohol abuse with intoxication, unspecified (principal); V49.9XXA Car occupant (driver) (passenger) injured in unspecified traffic accident, initial encounter; Y93.89 Activity, other specified; Y92.410 Unspecified street and highway as the place of occurrence of the external cause; E11.9 Type 2 diabetes mellitus without complications; I10 Essential (primary) hypertension

== ENCOUNTER 2017-10-30 03:38 | Emergency (ER) | payer MEDICAID ==
[~2017-10-30] VITALS: Ht 180.3 cm; Wt 112.7 kg
[2017-10-30 03:46] VITALS: Ht 180.3 cm; Wt 112.7 kg
[2017-10-30 04:24] LABS: BASOPHILS 0.5 % (0-2); EOSINOPHILS 4.2 % (0-7); HEMATOCRIT 39.3 % (42.0-54.0); HEMOGLOBIN 13.4 g/dL (13.5-17.5); IMMATURE GRANULOCYTES 0.5 % (0-5); LYMPHOCYTES 41.7 % (15-50); MCH 29.6 pg (26.0-34.0); MCHC 34.1 g/dL (31.0-37.0); MCV 86.8 fL (80.0-100.0); MEAN PLATELET VOLUME 10.4 fL (7.4-10.4); MONOCYTES 8.2 % (2-11); NEUTROPHILS 44.9 % (40-80); RBC 4.53 10x6/uL (4.20-6.10); RDW 12.4 % (11.5-14.5)
[2017-10-30 04:27] LABS: APPEARANCE CLEAR (CLEAR); COLOR YELLOW (YELLOW); SPECIFIC GRAVITY 1.015 (1.005-1.020)
[2017-10-30 04:28] LABS: BILIRUBIN NEGATIVE (NEGATIVE); GLUCOSE 1000 mg/dL (NEGATIVE); KETONE NEGATIVE (NEGATIVE); NITRITE NEGATIVE (NEGATIVE); PROTEIN NEGATIVE (NEGATIVE); UROBILINOGEN NORMAL (NORMAL)
[2017-10-30 04:30] LABS: PLATELET COUNT 238 10x3/uL (130-400)
[2017-10-30 04:50] LABS: KETONE - SERUM NEGATIVE (NEGATIVE)
[2017-10-30 04:54] LABS: ALKALINE PHOSPHATASE 135 U/L (46-116); ALT (SGPT) 86 U/L (10-68); BILIRUBIN - TOTAL 0.23 mg/dL (0.2-1.3); CALC OSMOLALITY 280 mosm/kg (275-300); CALCIUM 8.2 mg/dL (8.5-10.1); CARBON DIOXIDE 27.6 mmol/L (21.0-32.0); CHLORIDE - SERUM 102 mmol/L (98-107); CREATININE - SERUM 0.9 mg/dL (0.6-1.3); MAGNESIUM - SERUM 1.7 mg/dL (1.8-2.4); PHOSPHOROUS 3.3 mg/dL (2.5-4.9); PROTEIN - SERUM 6.9 g/dL (6.4-8.2); SODIUM 132 mmol/L (136-145); THYROID STIMULATING HORMONE 2.33 uIU/mL (0.36-3.74); UREA NITROGEN 9 mg/dL (7-18); eGFR NON AFRICAN AMERICAN > 90 mL/min (90-120)
[2017-10-30 05:14] LABS: GLUCOSE 405 mg/dL (74-106)
[2017-10-30 07:00] VITALS: BP 163/79
== END 2017-10-30 07:00 | disposition home or self-care (01) ==
LOC: D.ER 03:38
PROVIDERS: Family Medicine
DX: E11.8 Type 2 diabetes mellitus with unspecified complications (principal); Z86.73 Personal history of transient ischemic attack (TIA), and cerebral infarction without residual deficits; E11.9 Type 2 diabetes mellitus without complications; I10 Essential (primary) hypertension